=== PATIENT | female | born 1940 | race Two or more races ===

== ENCOUNTER 2017-03-23 13:08 | Emergency (ER) | payer MEDICARE, BC ==
[~2017-03-23] VITALS: Ht 152.4 cm; Wt 47.6 kg
--- NOTE | 2017-03-23 13:25 | NUR ---
PATIENT BIB PRIVATE EMS FROM [facility] D/T ALTERED MENTAL STATUS. PATIENT IS A/OX 1. BREATHING EVEN AND UNLABORED. NO SOB. NO DISTRESS. VITALS STABLE. SAFETY AND COMFORT MEASURES IN PLACE. AWAITING MD ORDERS.
--- NOTE | 2017-03-23 13:30 | NUR ---
NEW IV STARTED ON LAC, 20 G. BLOOD DRAWN AND SENT TO LAB.
[2017-03-23 13:36] LABS: EOSINOPHILS # (AUTO) 0.2 /CMM (0.0-0.7); EOSINOPHILS % (AUTO) 2.6 % (0.0-6.0); HEMATOCRIT 39 % (33-45); HEMOGLOBIN 12.3 g/dL (11.5-14.8); LYMPHOCYTES # (AUTO) 3.4 /CMM (0.8-4.8); LYMPHOCYTES % (AUTO) 46.7 % (20.0-44.0); MEAN CORPUSCULAR HEMOGLOBIN 29 PG (26.0-33.0); MEAN CORPUSCULAR HGB CONC 31 g/dl (31.0-36.0); MEAN CORPUSCULAR VOLUME 93 fL (82-100); MONOCYTES # (AUTO) 0.4 /CMM (0.1-1.30); MONOCYTES % (AUTO) 5.6 % (2.0-12.0); NEUTROPHILS # (AUTO) 3.3 /CMM (1.8-8.9); NEUTROPHILS % (AUTO) 45.1 % (43.0-81.0); PLATELET COUNT (AUTO) 464 /CMM (150-450); RDW COEFFICIENT OF VARIATION 15.8 (11.5-15.0); RED BLOOD CELL COUNT(AUTO) 4.23 MIL/uL (4.0-5.2); WHITE BLOOD COUNT (AUTO) 7.4 K/uL (4.3-11.0)
--- NOTE | 2017-03-23 13:40 | NUR ---
BLOOD SUGAR CHECKED, READING 93. INFORMED.
--- NOTE | 2017-03-23 13:41 | NUR ---
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
--- NOTE | 2017-03-23 13:43 | NUR ---
PATIENT TAKEN TO CT VIA STRETCHER.
[2017-03-23 13:48] LABS: INR 0.95 (0.87-1.13); PROTHROMBIN TIME 10.1 SECS (9.5-12.7)
[2017-03-23 13:49] LABS: ALANINE AMINOTRANSFERASE 22 U/L (12-78); ALBUMIN 3.2 g/dL (3.4-5.0); ALKALINE PHOSPHATASE 89 U/L (46-116); ASPARTATE AMINOTRANSFERASE 34 U/L (15-37); BILIRUBIN,DIRECT 0.1 mg/dL (0.0-0.2); BILIRUBIN,TOTAL 0.4 mg/dL (0.2-1.0); CALCIUM, SERUM 9.8 mg/dL (8.5-10.1); CARBON DIOXIDE 26 mmol/L (21-32); CHLORIDE 104 mmol/L (98-107); CREATININE 0.5 mg/dL (0.6-1.3); GLUCOSE 103 mg/dL (74-106); POTASSIUM 4.9 mmol/L (3.5-5.1); SODIUM SERUM 140 mmol/L (136-145); TOTAL PROTEIN, SERUM 8.3 g/dL (6.4-8.2); UREA NITROGEN, BLOOD 9 mg/dL (7-18)
[2017-03-23 13:51] LABS: TROPONIN I < 0.017 ng/mL (0.00-0.056)
--- NOTE | 2017-03-23 13:56 | NUR ---
PATIENT RETURNED FROM CT IN STABLE CONDITION.
--- NOTE | 2017-03-23 14:30 | NUR ---
PATIENT REFUSING URINARY CATH INSERTION FOR URINE SAMPLE. PATIENT EXPLAINED RISKS AND BENEFITS AND STILL REFUSED. DR. LEWIS MADE AWARE, STATING TO HOLD OFF FOR NOW.
--- NOTE | 2017-03-23 14:44 | NUR ---
CALLED FOR TRANSPORT ETA 40 MIN
[2017-03-23 15:28] VITALS: BP 132/72
--- NOTE | 2017-03-23 15:35 | NUR ---
Patient discharged [facility]. Written and verbal after care instructions given. Report given to EMT at bedside. Patient discharged via stretcher.
== END 2017-03-23 15:30 ==
LOC: ER 13:09
DX: F03.90 Unspecified dementia, unspecified severity, without behavioral disturbance, psychotic disturbance, mood disturbance, and anxiety (principal); F32.9 Major depressive disorder, single episode, unspecified; I70.0 Atherosclerosis of aorta
CPT/HCPCS: 36415; 70450; 71010; 80048; 80076; 82962; 84484; 85025; 85730; 93005; 99285; A4606; Z7610